=== PATIENT | female | born 2000 | race Caucasian/White ===

== ENCOUNTER 2021-07-05 04:20 | Emergency (ER) | payer BC ==
[2021-07-05] MEDS ORDERED: Ondansetron ODT 4 MG TAB ONE (04:38)
== END 2021-07-05 05:15 | disposition home or self-care (01) ==
LOC: CSHERS 04:20
DX: F10.129 Alcohol abuse with intoxication, unspecified (principal)
CPT/HCPCS: 99283; Q0162